=== PATIENT | male | born 1975 | race Caucasian/White ===

== ENCOUNTER 2017-03-10 09:11 | Emergency (ER) | payer OTHER ==
[~2017-03-10] VITALS: Ht 190.5 cm; Wt 131.5 kg
[2017-03-10 09:14] VITALS: BP 157/89
--- NOTE | 2017-03-10 10:27 | ED UPPER/LOWER EXTREMITY COMPL ---
See Addendum History of Present Illness General Chief Complaint: Animal/Insect Bite Stated Complaint: TICK BITE C/O OF JOINT PAIN Source: patient, Exam Limitations: no limitations Vital Signs & Intake/Output Vital Signs & Intake/Output Vital Signs Date Time Temp Pulse Resp B/P B/P Pulse O2 O2 Flow FiO2 Mean Ox Delivery Rate 03/10 0914 97.3 94 18 157/89 97 Room Air Room Air Allergies Coded Allergies: amoxicillin (Severe, ANAPHYLAXIS 03/10/17) Triage Note: TRIAGE: 42 Y/O MALE PRESENTS C/O TICK BITE LAST WEEK. WAS SEEN AT [facility], "BUT THEY DIDN'T DO ANY BLOOD WORK OR ANYTHING. THEY JUST SENT ME HOME ON A COURSE OF ANTIBIOTICS - DOXYCYCLINE..." C/O 6/ JOINT PAIN. ABLE TO AMBULATE WITHOUT DIFFICULTY. Triage Nurses Notes Reviewed? yes HPI: Patient presents for evaluation of bilateral elbow and knee pain that began on Sunday. He was seen Sunday at [facility] walk-in center and was prescribed doxycycline. Symptoms persist. He states no blood tests were done at [facility]. He is concerned about Lyme disease given the persistent joint pains. He denies any associated fever, cold symptoms or rashes. 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 Symptoms are described as constant and fluctuating, moderate severity. Past History Travel History Traveled to [place] past 21 day No Medical History Any Pertinent Medical History? 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 No Review of Systems Review of Systems Constitutional: Reports: no symptoms. EENTM: Reports: no symptoms. Respiratory: Reports: no symptoms. Cardiovascular: Reports: no symptoms. Gastrointestinal/Abdominal: Reports: no symptoms. Genitourinary: Reports: no symptoms. Musculoskeletal: Reports: see HPI. Skin: Reports: no symptoms. Neurological/Psychological: Reports: no symptoms. Hematologic/Endocrine: Reports: no symptoms. Immunological: Reports: no symptoms. All Other Systems: Reviewed and Negative Physical Exam Physical Exam General Appearance: SEE BELOW Comments: Gen.: Well-nourished, well-developed, no acute respiratory distress. Head: Normocephalic, atraumatic. Eyes: Normal inspection bilaterally Ears: Normal inspection bilaterally Nose: Normal inspection Throat/mouth : Moist mucosa Neck: Supple, full range of motion, no goiter Heart: Regular rate and rhythm, no murmurs rubs or gallops Lungs: Clear to auscultation bilaterally with normal air entry Chest: Nontender Back: Normal range of motion Abdomen: Soft, nontender, nondistended, normal bowel sounds Extremities: Normal range of motion grossly, equal radial pulses, no cyanosis clubbing or edema, no apparent arthritis Neurologic: Cranial nerves grossly intact, speech is clear, gait stable Skin: warm and dry, no rashes, no ticks Psychiatric: Calm, cooperative, no apparent delusions or hallucinations Progress Differential Diagnosis: lYME ARTHRITIS, OSTEOARTHRITIS Plan of Care: Orders Procedure Date/time Status LYME TITRE 03/10 1025 Active Laboratory Tests 03/10/17 1043: Lyme Disease Antibody Pending Departure Departure Disposition: HOME OR SELF CARE Condition: Stable Clinical Impression Primary Impression: Lyme arthritis Referrals: POLLO ELLIOTT MD (PCP/Family) Additional Instructions: Continue the doxycycline. Add Voltaren as needed for pain. Follow-up with Dr. Julian for reevaluation this week. Notify your primary care doctor of this emergency department visit and treatment plan. Return if any concerns or sudden worsening. Thank you for choosing the [facility] for your care. It was a pleasure to serve you today. Patricio Penaloza M.D. [facility] Departure Forms: Customer Survey General Discharge Information Prescriptions: Current Visit Scripts Diclofenac Sodium 1 TAB PO BID PRN arthritis #14 TAB
[2017-03-10] MEDS ORDERED: DICLOFENAC SODI75 M2 PO (10:54)
== END 2017-03-10 11:06 ==
LOC: ERH 09:11
DX: A69.20 Lyme disease, unspecified (principal)
CPT/HCPCS: 86618